=== PATIENT | female | born 1960 | race Caucasian/White ===

== ENCOUNTER 2018-07-23 02:32 | Outpatient (CLI) | payer OTHER, SELFPAY | END 2018-07-23 02:52 | PROVIDERS: PCP Family Medicine; Visit Provider Family Medicine | DX: R00.2 Palpitations (principal) | CPT/HCPCS: 0296T; 93225 ==

== ENCOUNTER 2018-08-20 14:50 | Outpatient (CLI) | payer OTHER, SELFPAY ==
[2018-08-20 15:59] LABS: Anion Gap 10.6 mmol/L (3-11); BUN 19 mg/dL (7-18); CO2 29.4 mmol/L (21.0-32.0); CREATININE 0.67 mg/dL (0.55-1.02); Chloride 101 mmol/L (98-107); Glucose 115 mg/dL (70-100); Potassium 4.2 mmol/L (3.5-5.1); Sodium 141 mmol/L (136-145)
[2018-08-20 16:15] LABS: TSH (W/Ref FT4) 0.59 uIU/mL (0.358-3.74)
== END 2018-08-20 15:10 ==
PROVIDERS: PCP Family Medicine; Visit Provider Family Medicine
DX: R00.2 Palpitations (principal)
CPT/HCPCS: 36415; 80048; 84443

== ENCOUNTER 2018-11-05 08:36 | Outpatient (CLI) | payer OTHER, SELFPAY ==
--- NOTE | 2018-11-26 15:00 | ZIOP_ITS ---
MONITOR IN PLACE: 13 days, 12 hours, November 052018 Baseline rhythm sinus. Rare single PAC. Three bursts of SVT, longest 12-beat duration, fastest 162 bpm. Rare single PVC. Rare couplet. Rare triplet. Eight runs of nonsustained VT, longest 4-beat duratio n, fastest 240 bpm. No bradycardia/block. Eleven triggered events occurring during sinus rhythm +/- single PVC, 90-119 bpm. Nine symptomatic episodes. Shortness of breath, fluttering, racing, pounding, chest pain, pressure/p ain, tingling, anxiety, pounding noted during sinus rhythm with PVC's, 88-126 bpm. Average heart rate sinus 96 bpm, range 65-135 bpm.
== END 2018-11-05 08:56 ==
PROVIDERS: PCP Family Medicine; Visit Provider Family Medicine
DX: R00.2 Palpitations (principal); I47.1 Supraventricular tachycardia; I49.3 Ventricular premature depolarization; I47.2 Ventricular tachycardia
CPT/HCPCS: 0296T

== ENCOUNTER 2019-01-21 00:16 | Outpatient (CLI) | payer OTHER, SELFPAY ==
--- NOTE | 2019-01-21 15:30 | DI.MAMMO_ITS ---
SYMPTOM/DIAGNOSIS: SCREENING Z12.31 BILATERAL SCREENING MAMMOGRAM: Mammograms were interpreted according to the usual protocol including computer analysis with CAD system, tomosynthesis and C view imaging. Comparison is made with exams from 2014 through 1017. The breasts are composed of heterogeneously dense fibroglandular tissue, breast density category C. There is a stable area of nodularity in the central left breast with adjacent calcification. No suspicious masses or suspicious microcalcifications are seen. There has been no significant change. IMPRESSION: Category 2, negative mammogram with benign findings. Yearly screening mammography is recommended. Breast density category C. MQSA ASSESSMENT OF FINDINGS: Negative with benign findings. Category 2. Patient will receive a letter notifying them of these results. Bi-RADS category C. The breasts are heterogeneously dense, which may obscure small masses.
== END 2019-01-21 00:36 ==
PROVIDERS: PCP Family Medicine; Visit Provider Nurse Practitioner Family
DX: N60.82 Other benign mammary dysplasias of left breast
CPT/HCPCS: 77063; 77067